=== PATIENT | female | born 1995 | race Hispanic/Latino ===

== ENCOUNTER 2017-10-23 15:53 | Observation (INO) | payer OTHER ==
[2017-10-23] MEDS ORDERED: Sodium Chloride 0.9% 1,000 ML IV STA (16:58)
--- NOTE | 2017-10-23 17:44 | ED PDOC ---
HPI: Wound Care - HPI Time Seen by Provider: 10/23/17 16:38 Chief Complaint (Nursing): Abnormal Skin Integrity Chief Complaint (Provider): Left Leg Infection History Per: Patient Exam Limitations: no limitations Onset/Duration Of Symptoms: Days (x5) Current Symptoms Are (Timing): Still Present Quality Of Symptoms: Painful, Swollen Additional Complaint(s): Beth Enriquez, 22 year old female presents in the emergency room complaining of redness and swelling of the left thigh, onset 5 days ago. She initially noticed a pimple-like lesion and attempted to pop it two days ago, with a small amount of pus expressed. Yesterday, 10/22/17 she had it incised and drained at the urgent care center where small amount of bloody pus was expressed. The wound was packed after the procedure and today on reevaluation, urgent care recommended to go to the ED for further evaluation. Patient reports increased redness surrounding the abscess as well as increased pain. Denies fever, body aches, malaise, or fatigue. However, she does complain of chills. PMD:Non CPH Provider Past Medical History Reviewed: Historical Data, Nursing Documentation, Vital Signs Vital Signs: Last Vital Signs Temp 100.3 F H 10/23/17 16:30 Pulse 129 H 10/23/17 16:30 Resp 20 10/23/17 16:30 BP 120/77 10/23/17 16:30 Pulse Ox 99 10/23/17 16:30 - Medical History PMH: No Chronic Diseases - Surgical History Surgical History: No Surg Hx - Family History Family History: States: No Known Family Hx - Social History Current smoker - smoking cessation education provided: No Alcohol: None Drugs: Denies - Home Medications Home Medications: Ambulatory Orders Medication Instructions Recorded Sulfamethoxazole/Trimethoprim 2 tab PO Q12 #40 tab 10/24/17 [Bactrim DS Tab] - Allergies Allergies/Adverse Reactions: Allergies Allergy/AdvReac Type Severity Reaction Status Date / Time vancomycin Allergy ITCHING Verified 10/24/17 06:01 Review of Systems ROS Statement: Except As Marked, All Systems Reviewed And Found Negative (As per HPI, otherwise negative) Constitutional: Positive for: Chills. Negative for: Fever, Weakness, Malaise, Other (body aches) Musculoskeletal: Positive for: Leg Pain (at site of swelling) Skin: Positive for: Other (increased redness and swelling on the left thigh) Physical Exam - Reviewed Nursing Documentation Reviewed: Yes Vital Signs Reviewed: Yes - Physical Exam Appears: Positive for: Non-toxic, In Acute Distress Head Exam: Positive for: ATRAUMATIC, NORMOCEPHALIC Skin: Positive for: Warm, Dry Eye Exam: Positive for: EOMI, PERRL Neck: Positive for: Painless ROM, Supple Cardiovascular/Chest: Negative for: Edema, Tachycardia Respiratory: Positive for: Normal Breath Sounds. Negative for: Respiratory Distress Gastrointestinal/Abdominal: Negative for: Distended, Guarding Back: Positive for: Normal Inspection. Negative for: Decreased ROM Extremity: Positive for: Other (LEFT leg: large area of erythema warmth induration and tenderness inferior to inguinal canal extending peripherally from 1cm packed incision) Neurologic/Psych: Positive for: Alert. Negative for: Motor/Sensory Deficits - Laboratory Results Result Diagrams: 10/24/17 11:50 10/24/17 06:30 - ECG O2 Sat by Pulse Oximetry: 99 (RA) Pulse Ox Interpretation: Normal Medical Decision Making Medical Decision Making: Time: 16:57 Impression: Left Thigh Abscess, Cellulitis, and Sepsis Failed outpatient antibiotic management. Initial Plan: --Venous Blood Gas Shock Panel --Basic Metabolic Panel --Urine (POC) --Urine Dipstick (POC) --CBC --NS 1,000 ml IV 1,000 mls/hr --Toradol 15mg IVP --Tylenol 975mg PO --Blood Culture --Wound Culture --Revaluation Time: 18:23 Patient will be admitted to Med/Surg for observation for thigh abscess cellulitis and early sepsis under the care of Dr. Dodd Scribe Attestation: Documented by Christiano Barbour, acting as a scribe for Lavonne Boles MD Provider Scribe Attestation: All medical record entries made by the Scribe were at my direction and personally dictated by me. I have reviewed the chart and agree that the record accurately reflects my personal performance of the history, physical exam, medical decision making, and the department course for this patient. I have also personally directed, reviewed, and agree with the discharge instructions and disposition. Disposition - Clinical Impression Clinical Impression: Cellulitis and abscess of left leg - Patient ED Disposition Is Patient to be Admitted: Yes Counseled Patient/Family Regarding: Studies Performed, Diagnosis - Disposition Disposition: Transfer of Care (admitted for observation) Disposition Time: 18:23 Condition: STABLE - Pt Status Changed To: Hospital Disposition Of: Observation - POA Present On Arrival: None
[2017-10-23 17:49] LABS: BASO % 0.2 % (0.0-2.0); EOS # 0.1 K/uL (0.0-0.7); EOS % 0.4 % (0.0-4.0); HEMOGLOBIN 12.9 g/dL (12.0-16.0); LYMPH % 15.4 % (20.0-40.0); MEAN CELL VOLUME 86.6 fl (81.0-99.0); MEAN CORPUSCULAR HEMOGLOBIN 28.7 pg (27.0-31.0); MEAN CORPUSCULAR HGB CONC 33.2 g/dL (33.0-37.0); MEAN PLATELET VOLUME 8.1 fl (7.2-11.7); MONO # 0.8 K/uL (0.0-0.8); MONO % 5.9 % (0.0-10.0); NEUT % 78.1 % (50.0-75.0); NRBC % 0.1 % (0.0-0.0); RBC 4.48 Mil/uL (3.80-5.20); RED CELL DISTRIBUTION WIDTH 13.2 % (11.5-14.5); WHITE BLOOD COUNT 12.8 K/uL (4.8-10.8)
[2017-10-23 17:51] LABS: VENOUS BLOOD GAS BASE EXCESS 1.6 mmol/L (0.0-2.0); VENOUS BLOOD GAS PCO2 39 mmHg (40-60); VENOUS BLOOD GAS PO2 29 mm/Hg (30-55); VENOUS BLOOD PH 7.43 (7.32-7.43)
[2017-10-23 18:15] LABS: BLOOD UREA NITROGEN 14 mg/dl (7-17); GFR AFRICAN-AMERICAN > 60; GFR NON-AFRICAN AMERICAN > 60
[2017-10-23 18:16] LABS: CALCIUM 9.8 mg/dL (8.4-10.2)
[2017-10-23] MEDS ORDERED: Piperacillin/Tazobact 3.375 GM in Sodium Chloride 0.9% 100 ML IV STA (18:20)
--- NOTE | 2017-10-23 18:48 | CP.PCM.HP ---
History of Present Illness - History of Present Illness History of Present Illness: chief complaint left thigh infection History of present illness: 22-year-old female with no past medical history presents with a several day history of left thigh/groin abscess and cellulitis. Patient went to urgent care 2 days ago and received clindamycin after an I&D, and upon follow-up today she was instructed to return to the emergency room for worsening of symptoms. Patient has an area of approximately 10 cm in diameter cellulitic changes, erythematous, tender, draining serosanguineous and some purulent drainage as well. In ER, pt mildly tachy 120s, however improved, WBC 12K, FEBRILE 100.3, given Vanc and Zosyn given in ER for failed outpatient antibiotics. Wound cultures pending. Admit to [facility] for IV Abx. ROS: per HPI all other systems reviewed and negative by me Past medical and surgical history: Denies Family history: Denies Social history: Denies tobacco, alcohol, IV drug use Medications: Denies NKDA Vitals stable and reviewed Constitutional- cooperative, awake, alert Head- NCAT, PERRL Eye- PERRL, EOMI ENT- normal exam, MMM. Neck- normal inspection, supple, no JVD Respiratory- CTAB, no wheezes rales rhonchi Cardiovascular- RRR, +S1, +S2 no MRG GI/Abdominal- normal bowel sounds, soft, no mass, no hsm Skin- warm, dry Extremities Exam- normal capillary refill, normal inspection Neurological Exam- alert, awake, oriented Psych- normal mood, normal affect Most Recent Lab Values WBC 12.8 K/uL (4.8-10.8) H 10/23/17 17:30 RBC 4.48 Mil/uL (3.80-5.20) 10/23/17 17:30 Hgb 12.9 g/dL (12.0-16.0) 10/23/17 17:30 Hct 38.8 % (34.0-47.0) 10/23/17 17:30 MCV 86.6 fl (81.0-99.0) 10/23/17 17:30 MCH 28.7 pg (27.0-31.0) 10/23/17 17:30 MCHC 33.2 g/dL (33.0-37.0) 10/23/17 17:30 RDW 13.2 % (11.5-14.5) 10/23/17 17:30 Plt Count 223 K/uL (130-400) 10/23/17 17:30 MPV 8.1 fl (7.2-11.7) 10/23/17 17:30 Neut % (Auto) 78.1 % (50.0-75.0) H 10/23/17 17:30 Lymph % (Auto) 15.4 % (20.0-40.0) L 10/23/17 17:30 [place] % (Auto) 5.9 % (0.0-10.0) 10/23/17 17:30 Eos % (Auto) 0.4 % (0.0-4.0) 10/23/17:30 Baso % (Auto) 0.2 % (0.0-2.0) 10/23/17 17:30 Neut # 10.0 K/uL (1.8-7.0) H 10/23/17 17:30 Lymph # 2.0 K/uL (1.0-4.3) 10/23/17 17:30 [place] # 0.8 K/uL (0.0-0.8) 10/23/17 17:30 Eos # 0.1 K/uL (0.0-0.7) 10/23/17 17:30 Baso # 0.0 K/uL (0.0-0.2) 10/23/17 17:30 pO2 29 mm/Hg (30-55) L 10/23/17 17:09 VBG pH 7.43 (7.32-7.43) 10/23/17 17:09 VBG pCO2 39 mmHg (40-60) L 10/23/17 17:09 VBG HCO3 25.1 mmol/L 10/23/17 17:09 VBG Total CO2 27.1 mmol/L (22-28) 10/23/17 17: VBG O2 Sat (Calc) 63.6 % (40-65) 10/23/17 17:09 VBG Base Excess 1.6 mmol/L (0.0-2.0) 10/23/17 17: VBG Potassium 3.7 mmol/L (3.6-5.2) 10/23/17 17:09 Sodium 137.0 mmol/L (132-148) 10/23/17 17:09 Chloride 105.0 mmol/L (98-107) 10/23/17 17:09 Glucose 108 mg/dL (65-105) H 10/23/17 17:09 Lactate 0.9 mmol/L (0.7-2.1) 10/23/17 17:09 FiO2 21.0 % 10/23/17 17:09 Sodium 142 mmol/l (132-148) 10/23/17 17:30 Potassium 3.7 MMOL/L (3.6-5.0) 10/23/17 17:30 Chloride 104 mmol/L (98-107) 10/23/17 17:30 Carbon Dioxide 27 mmol/L (22-30) 10/23/17 17:30 Anion Gap 15 (10-20) 10/23/17 17:30 BUN 14 mg/dl (7-17) 10/23/17 17:30 Creatinine 0.5 mg/dl (0.7-1.2) L 10/23/17 17:30 Est GFR ( Amer) > 60 10/23/17 17:30 Est GFR (Non-Af Amer) > 60 10/23/17 17:30 Random Glucose 109 mg/dL (65-105) H 10/23/17 17:30 Calcium 9.8 mg/dL (8.4-10.2) 10/23/17 17:30 Venous Blood Potassium 3.7 mmol/L (3.6-5.2) 10/23/17 17:09 22-year-old female with no past medical history presents with a several day history of left thigh/groin abscess and cellulitis. Patient went to urgent care 2 days ago and received clindamycin after an I&D, and upon follow-up today she was instructed to return to the emergency room for worsening of symptoms. Patient has an area of approximately 10 cm in diameter cellulitic changes, erythematous, tender, draining serosanguineous and some purulent drainage as well. In ER, pt mildly tachy 120s, however improved, WBC 12K, FEBRILE 100.3, given Vanc and Zosyn given in ER for failed outpatient antibiotics. Wound cultures pending. Admit to [facility] for IV Abx. Cellulitis and abscess left groin patient failed outpatient antibiotic currently hemodynamically stable continue vancomycin and Zosyn Monitor CBC BMP Wound cultures pending DVT prophylaxis SCDs Present on Admission - Present on Admission Any Indicators Present on Admission: No Past Patient History - Past Social History Smoking Status: Unknown If Ever Smoked - PSYCHIATRIC Hx Substance Use: No Meds Allergies/Adverse Reactions: Allergies Allergy/AdvReac Type Severity Reaction Status Date / Time No Known Allergies Allergy Verified 10/23/17 16:57 Results - Vital Signs Recent Vital Signs: Last Vital Signs Temp 100.3 F H 10/23/17 16:30 Pulse 129 H 10/23/17 16:30 Resp 20 10/23/17 16:30 BP 120/77 10/23/17 16:30 Pulse Ox 99 10/23/17 18:00 - Labs Result Diagrams: 10/23/17 17:30 10/23/17 17:30 Labs: Laboratory Results - last 24 hr 10/23/17 10/23/17 10/23/17 17:09 17:30 17:30 WBC 12.8 H RBC 4.48 Hgb 12.9 Hct 38.8 MCV 86.6 MCH 28.7 MCHC 33.2 RDW 13.2 Plt Count 223 MPV 8.1 Neut % (Auto) 78.1 H Lymph % (Auto) 15.4 L [place] % (Auto) 5.9 Eos % (Auto) 0.4 Baso % (Auto) 0.2 Neut # 10.0 H Lymph # 2.0 [place] # 0.8 Eos # 0.1 Baso # 0.0 pO2 29 L VBG pH 7.43 VBG pCO2 39 L VBG HCO3 25.1 VBG Total CO2 27.1 VBG O2 Sat (Calc) 63.6 VBG Base Excess 1.6 VBG Potassium 3.7 Sodium 137.0 142 Chloride 105.0 104 Glucose 108 H Lactate 0.9 FiO2 21.0 Potassium 3.7 Carbon Dioxide 27 Anion Gap 15 BUN 14 Creatinine 0.5 L Est GFR ( Amer) > 60 Est GFR (Non-Af Amer) > 60 Random Glucose 109 H Calcium 9.8 Venous Blood Potassium 3.7
[2017-10-23] MEDS ORDERED: DiphenhydrAMINE 50 mg/ml Inj IM PRN (21:39)
[2017-10-24] MEDS ORDERED: Piperacillin/Tazobact 3.375 GM in Sodium Chloride 0.9% 50 ML IVPB SCH (03:00)
[2017-10-24] MEDS: Piperacillin/Tazobact 3.375 GM in Sodium Chloride 0.9% 100 ML IVPB SCH ×2 (03:24→11:01)
[2017-10-24 07:37] VITALS: BP 100/65; PULSE 80; RESP 20; TEMP 97.3; O2SAT 99
[2017-10-24 08:07] LABS: BLOOD UREA NITROGEN 11 mg/dl (7-17); CALCIUM 8.8 mg/dL (8.4-10.2); GFR AFRICAN-AMERICAN > 60; GFR NON-AFRICAN AMERICAN > 60
[2017-10-24] MEDS ORDERED: Tmp-Smz 800 mg-160 mg DS Tab PO SCH (11:15)
[2017-10-24 12:06] LABS: BASO % 0.6 % (0.0-2.0); EOS # 0.3 K/uL (0.0-0.7); EOS % 3.3 % (0.0-4.0); LYMPH # 2.2 K/uL (1.0-4.3); LYMPH % 27.8 % (20.0-40.0); MEAN CELL VOLUME 87.3 fl (81.0-99.0); MEAN CORPUSCULAR HEMOGLOBIN 29.2 pg (27.0-31.0); MEAN CORPUSCULAR HGB CONC 33.5 g/dL (33.0-37.0); MEAN PLATELET VOLUME 8.6 fl (7.2-11.7); MONO # 0.6 K/uL (0.0-0.8); MONO % 7.7 % (0.0-10.0); NEUT # 4.8 K/uL (1.8-7.0); NEUT % 60.6 % (50.0-75.0); NRBC % 0.1 % (0.0-0.0); RBC 3.78 Mil/uL (3.80-5.20); RED CELL DISTRIBUTION WIDTH 13.3 % (11.5-14.5)
--- NOTE | 2017-10-24 13:10 | CP.PCM.DIS ---
Provider - Provider Date of Admission: 10/23/17 18:23 Attending physician: Laura Dodd DO Time Spent in preparation of Discharge (in minutes): 30 Diagnosis - Discharge Diagnosis (1) Cellulitis and abscess of left leg Status: Acute Hospital Course - Lab Results Lab Results: Micro Results 10/23/17 17:15 Thigh - Left Gram Stain - Final Most Recent Lab Values WBC 8.0 K/uL (4.8-10.8) 10/24/17 11:50 RBC 3.78 Mil/uL (3.80-5.20) L 10/24/17 11:50 Hgb 11.0 g/dL (12.0-16.0) L 10/24/17 11:50 Hct 33.0 % (34.0-47.0) L 10/24/17 11:50 MCV 87.3 fl (81.0-99.0) 10/24/17 11:50 MCH 29.2 pg (27.0-31.0) 10/24/17 11:50 MCHC 33.5 g/dL (33.0-37.0) 10/24/17 11:50 RDW 13.3 % (11.5-14.5) 10/24/17 11:50 Plt Count 183 K/uL (130-400) 10/24/17 11:50 MPV 8.6 fl (7.2-11.7) 10/24/17 11:50 Neut % (Auto) 60.6 % (50.0-75.0) 10/24/17 11:50 Lymph % (Auto) 27.8 % (20.0-40.0) 10/24/17 11:50 [place] % (Auto) 7.7 % (0.0-10.0) 10/24/17 11:50 Eos % (Auto) 3.3 % (0.0-4.0) 10/24/17 11:50 Baso % (Auto) 0.6 % (0.0-2.0) 10/24/17 11:50 Neut # 4.8 K/uL (1.8-7.0) 10/24/17 11:50 Lymph # 2.2 K/uL (1.0-4.3) 10/24/17 11:50 [place] # 0.6 K/uL (0.0-0.8) 10/24/17 11:50 Eos # 0.3 K/uL (0.0-0.7) 10/24/17 11:50 Baso # 0.0 K/uL (0.0-0.2) 10/24/17 11:50 pO2 29 mm/Hg (30-55) L 10/23/17 17:09 VBG pH 7.43 (7.32-7.43) 10/23/17 17:09 VBG pCO2 39 mmHg (40-60) L 10/23/17 17:09 VBG HCO3 25.1 mmol/L 10/23/17 17:09 VBG Total CO2 27.1 mmol/L (22-28) 10/23/17 17:09 VBG O2 Sat (Calc) 63.6 % (40-65) 10/23/17 17:09 VBG Base Excess 1.6 mmol/L (0.0-2.0) 10/23/17 17:09 VBG Potassium 3.7 mmol/L (3.6-5.2) 10/23/17 17:09 Sodium 137.0 mmol/L (132-148) 10/23/17 17:09 Chloride 105.0 mmol/L (98-107) 10/23/17 17:09 Glucose 108 mg/dL (65-105) H 10/23/17 17:09 Lactate 0.9 mmol/L (0.7-2.1) 10/23/17 17:09 FiO2 21.0 % 10/23/17 17:09 Sodium 143 mmol/l (132-148) 10/24/17 06:30 Potassium 4.4 MMOL/L (3.6-5.0) 10/24/17 06:30 Chloride 110 mmol/L (98-107) H 10/24/17 06:30 Carbon Dioxide 27 mmol/L (22-30) 10/24/17 06:30 Anion Gap 10 (10-20) 10/24/17 06:30 BUN 11 mg/dl (7-17) 10/24/17 06:30 Creatinine 0.7 mg/dl (0.7-1.2) 10/24/17 06:30 Est GFR ( Amer) > 60 10/24/17 06:30 Est GFR (Non-Af Amer) > 60 10/24/17 06:30 Random Glucose 85 mg/dL (65-105) 10/24/17 06:30 Calcium 8.8 mg/dL (8.4-10.2) 10/24/17 06:30 Venous Blood Potassium 3.7 mmol/L (3.6-5.2) 10/23/17 17:09 - Hospital Course Hospital Course: 22-year-old female with no past medical history presents with a several day history of left thigh/groin abscess and cellulitis. Patient went to urgent care 2 days ago and received clindamycin after an I&D, and upon follow-up today she was instructed to return to the emergency room for worsening of symptoms. Patient has an area of approximately 10 cm in diameter cellulitic changes, erythematous, tender, draining serosanguineous and some purulent drainage as well. In ER, pt mildly tachy 120s, however improved, WBC 12K, FEBRILE 100.3, given Vanc and Zosyn given in ER for failed outpatient antibiotics. Wound cultures pending. Admit to [facility] for IV Abx. Cellulitis and abscess left groin patient failed outpatient antibiotic currently hemodynamically stable pt received vanc and zosyn, did not tolerate vancomycin, itchy rash. per guidelines, patient intiated on Bactrim DS for 10 days. we will follow up cultures, patient to follow up with [facility]. Afebrile, and no WBC today. stable for discharge home with follow up PCP. DVT prophylaxis SCDs Discharge Exam - Head Exam Head Exam: ATRAUMATIC, NORMOCEPHALIC - Eye Exam Eye Exam: EOMI, Normal appearance, PERRL - ENT Exam ENT Exam: Mucous Membranes Moist, Normal Oropharynx - Respiratory Exam Respiratory Exam: Clear to PA & Lateral, NORMAL BREATHING PATTERN - Cardiovascular Exam Cardiovascular Exam: RRR, +S1, +S2 - Extremities Exam Extremities exam: normal capillary refill, pedal pulses present - Back Exam Back exam: absent: CVA tenderness (L), CVA tenderness (R) - Neurological Exam Neurological exam: Alert, Oriented x3 - Psychiatric Exam Psychiatric exam: Normal Affect, Normal Mood - Skin Skin Exam: Dry, Normal Color Additional comments: cellulitic area improving Discharge Plan - Discharge Medications Prescriptions: Sulfamethoxazole/Trimethoprim [Bactrim DS Tab] 2 tab PO Q12 #40 tab - Follow Up Plan Condition: STABLE Disposition: HOME/ ROUTINE Additional Instructions: FOLLOW UP WITH PCP, IF NONE, THEN PLEASE FOLLOW UP WITH THE [facility] IN ONE WEEK. Referrals: [facility] [Provider Group]
== END 2017-10-24 14:15 | disposition home or self-care (01) ==
LOC: H.ER 15:53 → H.ERHOLD 18:23 → H.MEDSURG1 20:45
PROVIDERS: ADMIT Student in an Organized Health Care Education/Training Program; ATTEND Student in an Organized Health Care Education/Training Program
DX: L02.416 Cutaneous abscess of left lower limb (principal); L03.116 Cellulitis of left lower limb
CPT/HCPCS: 36415; 80048; 81025; 82803; 85025; 87040; 87070; 87181; 96365; 96366; 96372; 96375; 99283; G0378; J1200; J1885; J2543; J7040